=== PATIENT | male | born 1985 | race Caucasian/White ===

== ENCOUNTER 2023-07-31 07:38 | Emergency (ER) | payer MEDICAID ==
[~2023-07-31] VITALS: Ht 175.3 cm; Wt 90.0 kg
[2023-07-31 07:42] VITALS: O2SAT 99
[2023-07-31] MEDS ORDERED: KETOROLAC 60MG/2ML VIAL IM ONE (08:00)
[2023-07-31] MEDS ORDERED: T3 PO (08:45)
[2023-07-31] MEDS ORDERED: IBUP-2028 PO (08:45)
[2023-07-31 10:03] VITALS: BP 127/84; PULSE 71; RESP 16; TEMP 98.8
== END 2023-07-31 10:06 | disposition home or self-care (01) ==
LOC: ER 07:38
DX: M25.562 Pain in left knee (principal); M25.561 Pain in right knee
CPT/HCPCS: 73560; 96372; 99283; J1885; Z7610